=== PATIENT | female | born 1970 | race Caucasian/White ===

== ENCOUNTER 2017-05-02 17:44 | Emergency (ER) | payer OTHER, MEDICAID ==
[2017-05-02 17:51] VITALS: BP 111/71; PULSE 78; RESP 16; TEMP 98.4; O2SAT 97
--- NOTE | 2017-05-02 17:53 | EDPHY ---
H & P Stated Complaint: Nausea, wt loss, subjective fever x several months;here to get checked out Time Seen by Provider: 05/02/17 17:52 - Personal History LMP (Females 10-55): 22-28 Days Ago Current Tetanus Diphtheria and Acellular Pertussis (TDAP): Yes Tetanus Vaccine Date: < 10 years - Medical/Surgical History Hx Asthma: No Hx Chronic Respiratory Disease: No Hx Diabetes: No Hx Cardiac Disease: No Hx Renal Disease: No Hx Cirrhosis: No Hx Alcoholism: No Hx HIV/AIDS: No Hx Splenectomy or Spleen Trauma: No Other PMH: migraines, appendicitis, plastic sx on ear, endometriosis, depression , panic disorder, TBI, SZ - Social History Smoking Status: Current every day smoker Constitutional: Initial Vital Signs Temperature (C) 36.9 C 05/02/17 17:48 Heart Rate 78 05/02/17 17:48 Respiratory Rate 16 05/02/17 17:48 Blood Pressure 111/71 05/02/17 17:48 O2 Sat (%) 97 05/02/17 17:48 O2 Delivery Mode Room Air Allergies/Adverse Reactions: promethazine HCl [From Phenergan] Allergy (Severe, Verified 05/02/17 17:47) COULDNT MOVE erythromycin base [Erythromycin Base] Allergy (Intermediate, Verified 05/02/17 17:47) "VIOLENTLY ILL" morphine [Morphine] Allergy (Intermediate, Verified 05/02/17 17:47) CRAWLED OUT OF SKIN risperidone [From Risperdal] Allergy (Unknown, Verified 05/02/17 17:47) levetiracetam [From Keppra] Allergy (Verified 05/02/17 17:47) oxycodone HCl [From OxyContin] Allergy (Verified 05/02/17 17:47) quetiapine fumarate [From Seroquel] Allergy (Verified 05/02/17 17:47) "I CAN'T MOVE OR SPEAK" Home Medications: Medication Instructions Recorded CLONAZEPAM 04/13/16 Cyclobenzaprine 04/13/16 Fioricet (*) 04/13/16 Zofran 04/13/16 Acyclovir [Zovirax 200 mg (*)] 200 mg PO 05/02/17 Medical Decision Making ED Course/Re-evaluation: CHIEF COMPLAINT: Chronic nausea, difficulty eating HISTORY OF PRESENT ILLNESS: The patient is a 47 y/o female complaining of chronic nausea, weakness, and difficulty eating for the last several months. She has lost several pounds over this time frame and attributes her symptoms to increased stress. She has been evaluated by her PCP and GI for these symptoms, but refused an endoscopy there. She uses Zofran to treat her nausea with some alleviation of symptoms. She is able to eat and drink daily, though reports small quantities. She came to the ED because her friends told her she needs electrolytes via IV. REVIEW OF SYSTEMS: A 10 point review of systems was performed and is negative with the exception of the elements mentioned in the history of present illness. PHYSICAL EXAM: HR, BP, O2 Sat, RR. Temp noted General Appearance: Alert, well hydrated, appropriate, thin, and non-toxic appearing. Head: Atraumatic without scalp tenderness or obvious injury Eyes: Pupils equal, round, reactive to light and accommodation, EOMI, no trauma , no injection. Nose: Atraumatic, no rhinorrhea, clear. Throat: Mucus membranes moist. Neck: Supple Respiratory: No retractions, no distress, no wheezes, and no accessory muscle use. Lungs are clear to auscultation bilaterally. Cardiovascular: Regular rate and rhythm, no murmurs, rubs, or gallops. Good capillary refill all extremities. Gastrointestinal: Abdomen is soft, nontender, non-distended, no masses, no rebound, no guarding, no peritoneal signs. Musculoskeletal: Normal active ROM of all extremities, atraumatic. Neurological: Alert, appropriate, and interactive. Nonfocal neuro exam. Skin: No rashes, good turgor, no nodules on palpation. Past medical history: Chronic nausea, head injuries (no hemorrhage or interventions) Past surgical history: Denies Family history: noncontributory Social history: Lives in [place]. Single. DIFFERENTIAL DIAGNOSIS: The differential diagnosis for the patient's nausea and vomiting included but was not limited to psychiatric disorder, anxiety, depression, gastroenteritis, gastritis, appendicitis, and medication side effect. MEDICAL DECISION MAKING: This is a 47 y/o female who presents with a several-month history of chronic nausea and decreased appetite. She has been extensively worked up for this by her PCP and refused endoscopy by her GI. She has not seen a mental health provider. She has no new symptoms today and is still able to eat and drink daily despite decreased appetite. There is no indication for additional work up or intervention here today. I've recommended following up with her GI and a psychologist this week. She agrees with this plan. Return precautions given. Departure - Departure Disposition: Home, Routine, Self-Care Clinical Impression: Chronic nausea Condition: Good Instructions: Depression (ED) Additional Instructions: 1. Follow up with GI of the [facility], [place] in the next week. You likely need an endoscopy to rule out GI disease processes. 2. Use Zofran as prescribed for nausea. 3. Follow up with a psychologist or psychiatrist for evaluation of depression. This could be a cause for your symptoms. Referrals: Liya Lieberman MD [Primary Care Provider] - As per Instructions Jez Jacques MD [Medical Doctor] - As per Instructions [facility],. [Clinic] - As per Instructions Report Scribed for: Kulwinder Boyd Report Scribed by: Alicia Winters Date of Report: 05/02/17 Time of Report: 18:03
== END 2017-05-02 18:18 | disposition home or self-care (01) ==
DX: R11.0 Nausea (principal); F17.200 Nicotine dependence, unspecified, uncomplicated

== ENCOUNTER 2017-05-19 16:22 | Emergency (ER) | payer OTHER, MEDICAID ==
--- NOTE | 2017-05-19 17:13 | EDPHY ---
H & P Stated Complaint: rectal bleeding /lower abd /pelvic pain/bloating/losing wt Time Seen by Provider: 05/19/17 16:54 HPI/ROS: CHIEF COMPLAINT: Rectal bleeding HISTORY OF PRESENT ILLNESS: This patient is a 47 year old female complaining of 1 episode of rectal bleeding. She has been having regular bowel movements, but noted bright red blood in the toilet after a bowel movement today. Today she describes the blood as "streaming" following a bowel movement, and endorses associated rectal pain. She states that for the last two years she has had difficulty eating, and around one month ago she began feeling very nauseous every time she eats. She was evaluated in this emergency department for this, and has an appointment scheduled to follow up with gastroenterology. She endorses feeling cold often, and has lost "a lot of weight" recently. She denies vomiting, diarrhea, fever, or other associated symptoms. REVIEW OF SYSTEMS: A 10 point review of systems was performed and is negative with the exception of the elements mentioned in the history of present illness. - Personal History LMP (Females 10-55): 1-7 Days Ago Current Tetanus/Diphtheria Vaccine: Unsure Tetanus Vaccine Date: < 10 years - Medical/Surgical History PMH: Three traumatic brain injuries, Migraines, Appendicitis, Endometriosis, Depression Hx Asthma: No Hx Chronic Respiratory Disease: No Hx Diabetes: No Hx Cardiac Disease: No Hx Renal Disease: No Hx Cirrhosis: No Hx Alcoholism: No Hx HIV/AIDS: No Hx Splenectomy or Spleen Trauma: No Other PMH: migraines, appendicitis, plastic sx on ear, endometriosis, depression , panic disorder, TBI, SZ - Social History Smoking Status: Current every day smoker Additional Social History: Single. Lives in [place]. - Physical Exam Exam: General Appearance: Alert, pleasant Eyes: Pupils equal and round, no conjunctival pallor or injection ENT, Mouth: Mucous membranes moist Neck: Normal inspection Respiratory: Lungs are clear to auscultation Cardiovascular: Regular rate and rhythm Gastrointestinal: Abdomen is soft, LLQ tenderness Rectal: Hemorrhoid present, no anal fissure, minimal stool present, no kuldeep blood Neurological: A&O, nonfocal, normal gait Skin: Warm and dry, no rash Extremities: Nontender, no pedal edema Psychiatric: Mood and affect normal Constitutional: Initial Vital Signs Temperature (C) 37 C 05/19/17 16:34 Heart Rate 88 05/19/17 16:34 Respiratory Rate 16 05/19/17 16:34 Blood Pressure 129/78 H 05/19/17 16:34 O2 Sat (%) 96 05/19/17 16:34 O2 Delivery Mode Room Air Allergies/Adverse Reactions: promethazine HCl [From Phenergan] Allergy (Severe, Verified 05/19/17 16:33) COULDNT MOVE erythromycin base [Erythromycin Base] Allergy (Intermediate, Verified 05/19/17 16:33) "VIOLENTLY ILL" morphine [Morphine] Allergy (Intermediate, Verified 05/19/17 16:33) CRAWLED OUT OF SKIN risperidone [From Risperdal] Allergy (Unknown, Verified 05/19/17 16:33) levetiracetam [From Keppra] Allergy (Verified 05/19/17 16:33) oxycodone HCl [From OxyContin] Allergy (Verified 05/19/17 16:33) quetiapine fumarate [From Seroquel] Allergy (Verified 05/19/17 16:33) "I CAN'T MOVE OR SPEAK" Home Medications: Medication Instructions Recorded CLONAZEPAM 04/13/16 Cyclobenzaprine 04/13/16 Fioricet (*) 04/13/16 Zofran 16 Medical Decision Making - Diagnostics Imaging: Discussed imaging studies w/ call center support consultant Radiologist ED Course/Re-evaluation: This patient presents with one episode of BRBPR and LLQ tenderness. Stat CT abd/ pelvis ordered to rule out diverticulitis. IV established. Administered 1L IV NS for patient comfort and symptom relief. 19:[address] Coelho, radiologist. CT abdomen/pelvis shows possible ovarian cyst; no evidence of diverticulitis or other acute processes. 19:26 Reassessed patient. Minor GI bleed, likely internal hemorrhoid. Plan to discharge home in good condition. She will follow up with gastroenterology as scheduled. Return precautions discussed. The patient is comfortable with this plan. Differential Diagnosis: Includes though is not limited to diverticulitis, AVM, severe anemia, upper GI bleed, hemorrhoid, anal fissure. - Data Points Laboratory Results: Laboratory Results 05/19/17 17:14 05/19/17 17:14 Medications Given: Discontinued Medications Sodium Chloride (Ns) 1,000 mls @ 0 mls/hr IV EDNOW ONE; Wide Open PRN Reason: Protocol Stop: 05/19/17 17:34 Last Admin: 05/19/17 17:42 Dose: 1,000 mls Departure - Departure Disposition: Home, Routine, Self-Care Clinical Impression: Rectal bleeding Condition: Good Instructions: Rectal Bleeding (ED) Additional Instructions: 1. Follow up with gastroenterology as scheduled for continued evaluation. 2. Return to the emergency department for increased bleeding, dizziness, fainting, worsening abdominal pain, or other concerns. Referrals: Liya Lieberman MD [Primary Care Provider] - As per Instructions Loida Doan MD [Medical Doctor] - As per Instructions Report Scribed for: Sherlyn Calloway Report Scribed by: Violetta Mustafa Date of Report: 05/19/17 Time of Report: 17:13 Physician Review and Approval Statement: 05/19/17 17:13 Portions of this note were transcribed by a biomedical specialist. I personally performed a history, physical exam, medical decision making, and confirmed accuracy of information the transcribed note.
[2017-05-19] MEDS ORDERED: NS 1,000 ML IV ONE (17:33)
[2017-05-19 17:41] LABS: % IMMATURE GRANULYOCYTES 0.4 % (0.0-1.1); ABSOLUTE IMMATURE GRANULOCYTES 0.02 10^3/uL (0.00-0.10); ADD DIFF? NO; ADD MORPH? NO; ADD SCAN? NO; ATYPICAL LYMPHOCYTE FLAG 10 (0-99); FRAGMENT RBC FLAG 0 (0-99); HEMATOCRIT 39.1 % (38.0-47.0); HEMOGLOBIN 13.6 g/dL (12.6-16.3); LEFT SHIFT FLG 0 (0-99); LIPEMIA HEMOLYSIS FLAG 90 (0-99); MEAN CELL HEMOGLOBIN 34.9 pg (27.9-34.1); MEAN CELL HEMOGLOBIN CONCENTR. 34.8 g/dL (32.4-36.7); MEAN CELL VOLUME 100.3 fL (81.5-99.8); MEAN PLATELET VOLUME 10.5 fL (8.7-11.7); PLATELET CLUMPS FLAG 10 (0-99); PLATELET COUNT 203 10^3/uL (150-400); RED CELL DISTRIBUTION WIDTH 12.1 % (11.5-15.2)
[2017-05-19 17:47] LABS: ANION GAP 9 mEq/L (8-16); CALCIUM 9.1 mg/dL (8.5-10.4); CARBON DIOXIDE 24 mEq/l (22-31); CHLORIDE 103 mEq/L (97-110); CREATININE 0.7 mg/dL (0.6-1.0); GLOMERULAR FILTRATION RATE > 60; GLUCOSE 97 mg/dL (70-100); POTASSIUM 3.5 mEq/L (3.5-5.2); SODIUM 136 mEq/L (134-144)
[2017-05-19] MEDS ORDERED: IOPAMIDOL (ISOVUE-300) 100 ML BTL ONE (18:24)
[2017-05-19 19:02] VITALS: BP 100/67; PULSE 66; RESP 18; TEMP 98.2; O2SAT 98
== END 2017-05-19 19:45 | disposition home or self-care (01) ==
DX: K62.5 Hemorrhage of anus and rectum (principal); F17.200 Nicotine dependence, unspecified, uncomplicated; E86.9 Volume depletion, unspecified
CPT/HCPCS: 74177; 96360; 99285; Q9967

== ENCOUNTER → 2017-09-01 | Outpatient (CLI) | payer OTHER, MEDICAID | LOC: CIMAGING 17:47 | PROVIDERS: ATTEND Family Medicine | DX: E04.1 Nontoxic single thyroid nodule (principal); L65.9 Nonscarring hair loss, unspecified; R53.83 Other fatigue; R63.4 Abnormal weight loss; R68.89 Other general symptoms and signs; Z86.39 Personal history of other endocrine, nutritional and metabolic disease | CPT/HCPCS: 76536-PO; 82607-90; 84481-90; 87338-90 ==

== ENCOUNTER → 2017-09-09 | Outpatient (CLI) | payer OTHER, MEDICAID | LOC: FLAB 08:39 | PROVIDERS: ATTEND Family Medicine | DX: E05.90 Thyrotoxicosis, unspecified without thyrotoxic crisis or storm (principal) | CPT/HCPCS: 78014; A9516 ==

== ENCOUNTER 2017-09-27 14:20 | Emergency (ER) | payer OTHER, MEDICAID ==
[2017-09-27 14:25] VITALS: TEMP 97.9
--- NOTE | 2017-09-27 15:23 | EDPHY ---
H & P Stated Complaint: Cough and Flu Sx HPI/ROS: CHIEF COMPLAINT: Cough, weak, lethargic, chest pain HISTORY OF PRESENT ILLNESS: The patient is a 47 y/o female with a history of pneumonia and asthma complaining of cough, sore throat, body aches, and lethargy for the past 5 days. Last night she began to have sweats and has been coughing up yellow sputum. The symptoms today are similar with her prior pneumonia and she is concerned that she might have pneumonia again. Has been able to eat and drink. Took ibuprofen and Fioricet at 10:00, 6 hours ago. Denies diarrhea, vomiting, abdominal pain, urinary complaints, numbness or other pertinent symptoms. REVIEW OF SYSTEMS: A ten point review of systems was performed and is negative with the exception of the items mentioned in the HPI. Past medical history: 1. Asthma 2. Migraines 3. Endometriosis 4. Depression 5. Panic disorder 6. TBI 7. Seizure Past surgical history: 1. Appendicitis 2. Plastic surgery on ear Family history: Denies Social history: Lives in [place], single, smoker General Appearance: Alert. Vital signs reviewed. Eyes: Pupils equal and round, no conjunctival injection, no discharge. Anicteric. ENT, Mouth: Mucous membranes are moist, no oropharyngeal erythema or edema. Ears: Cerumen visible in left ear. Nl TM right. Neck: Lymphadenopathy present, supple. Respiratory: Wheezes with deep expirations. No rales, or rhonchi. Cardiovascular: Regular rate and rhythm; no murmur, rub, or gallop. Gastrointestinal: Abdomen is soft and nontender, no masses or organomegaly, bowel sounds normal. Skin: Warm and dry, no rashes on exposed skin, normal color. Back: Nontender to palpation over the thoracolumbar spine. No CVAT. Extremities: No lower extremity edema, no calf tenderness or swelling. Neurological: Alert and oriented. Moving all four extremities easily and equally. Psychiatric: Normal affect. - Personal History LMP (Females 10-55): 8-14 Days Ago Current Tetanus Diphtheria and Acellular Pertussis (TDAP): Yes Tetanus Vaccine Date: < 10 years - Medical/Surgical History Hx Asthma: No Hx Chronic Respiratory Disease: No Hx Diabetes: No Hx Cardiac Disease: No Hx Renal Disease: No Hx Cirrhosis: No Hx Alcoholism: No Hx HIV/AIDS: No Hx Splenectomy or Spleen Trauma: No Other PMH: migraines, appendicitis, plastic sx on ear, endometriosis, depression , panic disorder, TBI, SZ - Social History Smoking Status: Current every day smoker Constitutional: Initial Vital Signs Temperature (C) 36.6 C 09/27/17 14:22 Heart Rate 85 09/27/17 14:22 Respiratory Rate 18 09/27/17 14:22 Blood Pressure 113/74 09/27/17 14:22 O2 Sat (%) 96 09/27/17 14:22 O2 Delivery Mode Room Air Allergies/Adverse Reactions: promethazine HCl [From Phenergan] Allergy (Severe, Verified 05/19/17 16:33) COULDNT MOVE erythromycin base [Erythromycin Base] Allergy (Intermediate, Verified 05/19/17 16:33) "VIOLENTLY ILL" morphine [Morphine] Allergy (Intermediate, Verified 05/19/17 16:33) CRAWLED OUT OF SKIN risperidone [From Risperdal] Allergy (Unknown, Verified 05/19/17 16:33) levetiracetam [From Keppra] Allergy (Verified 05/19/17 16:33) oxycodone HCl [From OxyContin] Allergy (Verified 05/19/17 16:33) quetiapine fumarate [From Seroquel] Allergy (Verified 05/19/17 16:33) "I CAN'T MOVE OR SPEAK" Home Medications: Medication Instructions Recorded CLONAZEPAM 04/13/16 Cyclobenzaprine 04/13/16 Fioricet (*) 04/13/16 Zofran 04/13/16 Benzonatate [Tessalon Pearles (RX)] 100 mg PO TID #15 cap 09/27/17 Medical Decision Making - Diagnostics Imaging: I viewed and interpreted images myself ED Course/Re-evaluation: The patient is a 47 y/o female with a history of pneumonia and asthma presenting with body aches, fatigue, and lethargy for 5 days. On exam, there are wheezes with deep expirations and lymphadenopathy present. Patient would like a flu test. Chest x-ray ordered. 1L IV NS and DuoNeb ordered. She is declining Tylenol and/or ibuprofen. 1600: I reviewed patient's chest x-ray; there are no acute abnormalities. 1640: Reassessed patient and discussed imaging findings. She is feeling better after DuoNeb treatment. 1700: Patient has influenza A. 1800: Reassessed patient and discussed positive influenza findings. I have prescribed her Tessalon pearls for her cough and wheezing. I have advised her to take Tylenol or ibuprofen as well as increase her fluids. She is encouraged to use her inhaler. She does not meet Tamiflu criteria. Return precautions provided; patient is comfortable with this plan. Differential Diagnosis: I considered a ddx that includes but is not limited to influenza, pneumonia, bronchitis, URI, otitis media or externa, pharyngitis, other viral syndromes. - Data Points Medications Given: Discontinued Medications Albuterol/Ipratropium (Duoneb) 3 ml IH EDNOW ONE Stop: 09/27/17 16:15 Last Admin: 09/27/17 16:19 Dose: 3 ml Benzonatate (Tessalon Pearles) 200 mg PO EDNOW ONE Stop: 09/27/17 17:48 Last Admin: 09/27/17 18:10 Dose: 200 mg Sodium Chloride (Ns) 1,000 mls @ 0 mls/hr IV ONCE ONE; Wide Open PRN Reason: Protocol Stop: 09/27/17 16:15 Last Admin: 09/27/17 16:19 Dose: 1,000 mls Departure - Departure Disposition: Home, Routine, Self-Care Clinical Impression: Influenza A Condition: Good Instructions: Benzonatate (By mouth), Influenza (ED) Additional Instructions: 1. Adult Pain & Fever Control: We recommend Acetaminophen (Tylenol) and Ibuprofen (Motrin,Advil) for pain and fever control. When fever is high or pain severe, both drugs can be used at the same time, but at different intervals. Please note the time differences. Your dose is: Acetaminophen 650mg every 4 to 6 hours Ibuprofen 400mg every 6-8 hours with food. Note: do not take Acetaminophen with Hydrocodone (Vicodin, Lortab) or Oycodone (Percocet). These medications also contain Acetaminophen. No more than 3000mg of Acetaminophen should be taken in 24 hours (for an adult). 2. Take Tessalon pearls as prescribed. 3. Increase fluid intake as much as tolerated. 4. Follow up with primary care physician in 3-4 days if not improving. 5. Return to the Emergency Department for uncontrollable fever, shortness of breath, or other worsening of condition. Referrals: Kwame Moreno DO [Primary Care Provider] - As per Instructions Prescriptions: Benzonatate [Tessalon Pearles (RX)] 100 mg PO TID #15 cap Report Scribed for: Cordelia Collazo Report Scribed by: Liss Givens Date of Report: 09/27/17 Time of Report: 15:37 Physician Review and Approval Statement: 09/27/17 15:23 Portions of this note were transcribed by the medical research scientist. I, Dr. Cordelia Collazo, personally performed the history, physical exam, and medical decision- making; and confirmed the accuracy of the information in the transcribed note.
[2017-09-27] MEDS ORDERED: IPRATROPIUM/ALBUTEROL 3 ML DEYVIAL IH ONE (16:14)
[2017-09-27] MEDS ORDERED: NS 1,000 ML IV ONE (16:14)
[2017-09-27 16:43] VITALS: BP 103/65; PULSE 72; RESP 16; O2SAT 99
[2017-09-27] MEDS ORDERED: BENZONATATE 100 MG CAP PO ONE (17:47)
== END 2017-09-27 18:12 | disposition home or self-care (01) ==
PROC: 3E0337Z Introduction of Electrolytic and Water Balance Substance into Peripheral Vein, Percutaneous Approach (ICD-10-PCS; principal; 2017-09-27)
DX: J10.1 Influenza due to other identified influenza virus with other respiratory manifestations (principal); J45.909 Unspecified asthma, uncomplicated; F17.200 Nicotine dependence, unspecified, uncomplicated; E86.9 Volume depletion, unspecified

== ENCOUNTER 2017-09-29 14:43 | Emergency (ER) | payer OTHER, MEDICAID ==
[2017-09-29 14:47] VITALS: RESP 18; TEMP 98.2
[2017-09-29] MEDS ORDERED: guaiFENesin 600 MG TAB.ER PO ONE (15:06)
[2017-09-29] MEDS ORDERED: IPRATROPIUM/ALBUTEROL 3 ML DEYVIAL IH ONE (15:08)
--- NOTE | 2017-09-29 15:11 | EDPHY ---
H & P Stated Complaint: coughing up blood/positive flu Time Seen by Provider: 09/29/17 14:56 HPI/ROS: CHIEF COMPLAINT: Coughing up blood HISTORY OF PRESENT ILLNESS: The patient is a 47-year-old female who was seen 2 days ago diagnosed with the flu A and had a negative chest x-ray. It was too late for her to start Tamiflu. She states that today she had some blood-tinged sputum in her cough and called her primary is office with the nurse line recommended she come to the ER. She has not had a fever lately. She states that her cough is decreased. She was prescribed Tessalon Perles but was not able to fill the prescription because of cost. REVIEW OF SYSTEMS: Constitutional: denies: chills, fever, recent illness, recent injury EENTM: denies: blurred vision, double vision, nose congestion Respiratory: See HPI Cardiac: denies: chest pain, irregular heart rate, lightheadedness, palpitations Gastrointestinal/Abdominal: denies: abdominal pain, diarrhea, nausea, vomiting, blood streaked stools Genitourinary: denies: dysuria, frequency, hematuria, pain Musculoskeletal: denies: joint pain, muscle pain Skin: denies: lesions, rash, jaundice, bruising Neurological: denies: headache, numbness, paresthesia, tingling, dizziness, weakness Hematologic/Lymphatic: denies: blood clots, easy bleeding, easy bruising Immunologic/allergic: denies: HIV/AIDS, transplant EXAM: GENERAL: Well-appearing, well-nourished and in no acute distress. HEAD: Atraumatic, normocephalic. EYES: Pupils equal round and reactive to light, extraocular movements intact, sclera anicteric, conjunctiva are normal. ENT: TMs normal, nares patent, oropharynx clear without exudates. Moist mucous membranes. NECK: Normal range of motion, supple without lymphadenopathy or JVD. LUNGS: Breath sounds clear to auscultation bilaterally and equal. No wheezes rales or rhonchi. HEART: Regular rate and rhythm without murmurs, rubs or gallops. ABDOMEN: Soft, nontender, normoactive bowel sounds. No guarding, no rebound. No masses appreciated. BACK: No CVA tenderness, no spinal tenderness, step-offs or deformities EXTREMITIES: Normal range of motion, no pitting or edema. No clubbing or cyanosis. NEUROLOGICAL: Cranial nerves II through XII grossly intact. Normal speech, normal gait. 5/5 strength, normal movement in all extremities, normal sensation PSYCH: Normal mood, normal affect. SKIN: Warm, dry, normal turgor, no visible rashes or lesions. Source: Patient Exam Limitations: No limitations - Personal History Tetanus Vaccine Date: < 10 years - Medical/Surgical History Hx Asthma: No Hx Chronic Respiratory Disease: No Hx Diabetes: No Hx Cardiac Disease: No Hx Renal Disease: No Hx Cirrhosis: No Hx Alcoholism: No Hx HIV/AIDS: No Hx Splenectomy or Spleen Trauma: No Other PMH: migraines, appendicitis, plastic sx on ear, endometriosis, depression , panic disorder, TBI, SZ - Family History Significant Family History: No pertinent family hx - Social History Smoking Status: Current every day smoker Alcohol Use: Sober Constitutional: Initial Vital Signs Temperature (C) 36.8 C 09/29/17 14:45 Heart Rate 84 09/29/17 14:45 Respiratory Rate 18 09/29/17 14:45 Blood Pressure 122/73 H 09/29/17 14:45 O2 Sat (%) 97 09/29/17 14:45 O2 Delivery Mode Room Air Allergies/Adverse Reactions: promethazine HCl [From Phenergan] Allergy (Severe, Verified 05/19/17 16:33) COULDNT MOVE erythromycin base [Erythromycin Base] Allergy (Intermediate, Verified 05/19/17 16:33) "VIOLENTLY ILL" morphine [Morphine] Allergy (Intermediate, Verified 05/19/17 16:33) CRAWLED OUT OF SKIN risperidone [From Risperdal] Allergy (Unknown, Verified 05/19/17 16:33) levetiracetam [From Keppra] Allergy (Verified 05/19/17 16:33) oxycodone HCl [From OxyContin] Allergy (Verified 05/19/17 16:33) quetiapine fumarate [From Seroquel] Allergy (Verified 05/19/17 16:33) "I CAN'T MOVE OR SPEAK" Home Medications: Medication Instructions Recorded CLONAZEPAM 04/13/16 Cyclobenzaprine 04/13/16 Fioricet (*) 04/13/16 Zofran 04/13/16 Benzonatate [Tessalon Pearles (RX)] 100 mg PO TID #15 cap 09/27/17 Ondansetron Odt [Zofran Odt 4 mg 4 mg PO Q4 PRN #20 tab 09/29/17 (RX)] guaiFENesin [Mucinex 600 MG (*)] 600 mg PO BID #14 tab.er 09/29/17 Medical Decision Making - Diagnostics Imaging Results: Imaging Impressions Chest X-Ray 09/29/17 15:07 Impression: Findings consistent with mild airways disease noted. ED Course/Re-evaluation: Patient has a normal lung exam is saturating 97% on room air. We discussed options. She is requesting a chest x-ray and a DuoNeb. We will observe. 3:30 p.m. the patient feels shaky after the albuterol treatment and does not feel better. We discussed her x-ray results which are reassuring. She is requesting Zofran as well as Mucinex as a prescription. She declines further workup or testing at this time and is ready to go home. We discussed follow-up and indications for returning. Differential Diagnosis: Partial list of the Differential diagnosis considered include but were not limited to; influenza, bronchitis, pneumonia, anxiety and although unlikely based on the history and physical exam, I also considered PE, DVT, tuberculosis. I discussed these differential diagnoses and the plan with the patient as well as the usual and expected course. The patient understands that the diagnosis is provisional and that in medicine we are not always correct and that further workup is often warranted. Usual and customary warnings were given. All of the patient's questions were answered. The patient was instructed to return to the emergency department should the symptoms at all worsen or return, otherwise to followup with the physician as we discussed. - Data Points Medications Given: Discontinued Medications Albuterol/Ipratropium (Duoneb) 3 ml IH EDNOW ONE Stop: 09/29/17 15:09 Last Admin: 09/29/17 15:20 Dose: 3 ml Guaifenesin (Mucinex) 600 mg PO EDNOW ONE Stop: 09/29/17 15:07 Last Admin: 09/29/17 15:35 Dose: 600 mg Ondansetron HCl (Zofran Odt) 4 mg PO EDNOW ONE Stop: 09/29/17 15:24 Last Admin: 09/29/17 15:35 Dose: 4 mg Departure - Departure Disposition: Home, Routine, Self-Care Clinical Impression: Influenza A Condition: Fair Instructions: Guaifenesin (By mouth), Ondansetron (By mouth), Influenza (ED) Referrals: Kwame Moreno DO [Primary Care Provider] - As per Instructions Prescriptions: guaiFENesin [Mucinex 600 MG (*)] 600 mg PO BID #14 tab.er Ondansetron Odt [Zofran Odt 4 mg (RX)] 4 mg PO Q4 PRN #20 tab PRN Reason: Nausea & Vomiting
[2017-09-29] MEDS ORDERED: ONDANSETRON DISINTEGRATING 4 MG TAB PO ONE (15:23)
[2017-09-29 15:55] VITALS: BP 99/62; PULSE 71; O2SAT 98
== END 2017-09-29 15:55 | disposition home or self-care (01) ==
DX: J10.1 Influenza due to other identified influenza virus with other respiratory manifestations (principal); F17.200 Nicotine dependence, unspecified, uncomplicated

== ENCOUNTER → 2017-11-27 | Outpatient (CLI) | payer OTHER, MEDICAID | LOC: FIMAGING 12:21 | PROVIDERS: ATTEND Internal Medicine Gastroenterology | DX: R10.84 Generalized abdominal pain (principal) ==

== ENCOUNTER 2017-12-01 10:41 | Day surgery (SDC) | payer OTHER, MEDICAID ==
[2017-12-01] MEDS ORDERED: LR 1,000 ML IV ONE (11:02)
[2017-12-01] MEDS ORDERED: LIDOCAINE 1% 2 ML INJ ID PRN (11:02)
[2017-12-01 11:42] VITALS: PULSE 75
--- NOTE | 2017-12-01 12:23 | PDGENHP ---
History & Physical Chief Complaint: Hematochezia History of Present Illness: 47 yo female with abdominal pain, bloating and hematochezia Pertinent Past, Social, Family History: RAD. Anxiety. No Tobacco or ETOH. No FH colon cancer Relevant Physical Exam: NAD. CTA B/L. Dry cough. Good air exchange. RRR without m/r/g. GI soft. NABS. No TTP. No R/G Cardiorespiratory Assessment: ASA II. Colonoscopy with MAC
[2017-12-01] MEDS ORDERED: PROPOFOL/EMULSION 500 MG/50 ML BOTTLE IV ONE (12:26)
[2017-12-01] MEDS ORDERED: NALOXONE HCL 0.4 MG/ML INJ IVP PRN (12:41)
[2017-12-01] MEDS ORDERED: LR 500 ML IV PRN (12:41)
[2017-12-01] MEDS ORDERED: ONDANSETRON 4 MG/2 ML VIAL IVP PRN (12:41)
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
--- NOTE | 2017-12-01 12:50 | GIREPORT ---
[facility] Surgical Services - Endoscopy Department Patient Name: Carolynn Osborne Procedure Date: 12/01/2017 12:20 PM Patient Type: Outpatient Attending MD/ ER Physician: Edu Garber MD Procedure: Colonoscopy Indications: Abdominal pain in the left lower quadrant, Hematochezia, Change in federica l habits Providers: Edu Garber MD Medicines: Propofol per Anesthesia Complications: No immediate complications. Description of Procedure: After obtaining informed consent, the scope was passed under direct vis ion. Throughout the procedure, the patient's blood pressure, pulse, and oxyg en saturations were monitored continuously. The Loaner scope was introduce d through the anus and advanced to the cecum, identified by appendiceal orifice and ileocecal valve. The colonoscopy was performed without difficulty. The patient tolerated the procedure well. The quality of th e bowel preparation was unsatisfactory. Findings: The perianal and digital rectal examinations were normal. Pertinent negatives include normal sphincter tone and no palpable rectal lesions. Barium from her recent UGI series was found in the entire right colon a nd could not be cleansed. The portions of the colon that were seen exhibit ed normal mucosa from the rectum to cecum. Estimated Blood Loss: Estimated blood loss: none. Post Op Diagnosis: - Preparation of the colon was unsatisfactory. - Normal mucosa from rectum to cecum for the portions that could be adequately seen. - No specimens collected. - The exam is incomplete and needs to be repeated. - I suspect her symptoms are related to irritable bowel syndrome. Recommendation: - Repeat colonoscopy at appointment to be scheduled because the bowel preparation was poor. - Resume previous diet. - Continue present medications. - Patient has a contact number available for emergencies. The signs and symptoms of potential delayed complications were discussed with the pat ient. Return to normal activities tomorrow. Written discharge instructions we re provided to the patient. - Thank you for allowing me to be involved in the care of your patient. Attending Participation: I personally performed the entire procedure without the assistance of a fellow, resident or surg ical research assistant member. Edu Garber MD Edu Garber MD 12/01/2017 12:49:43 PM This report has been signed electronicallyDavid MD Shirlene Number of Addenda: 0 Note Initiated On: 12/01/2017 12:20 PM Total Procedure Duration Time 0 hours 9 minutes 57 seconds [email or web address]
--- NOTE | 2017-12-01 14:22 | POSTANESTH ---
Post Anesthetic Evaluation Cardiovascular Status: Similar to Pre-Op Cond Respiratory Status: Similar to Pre-op Cond. Level of Consciousness/Mental Status: Alert and Oriented Pain Control: Adequate, Prn Tx Ordered Nausea/Vomiting Control: Adequate, Prn Tx Ordered Complications Possibly Related to Anesthesia: None Noted
[2017-12-01 14:34] VITALS: BP 92/60; RESP 11; O2SAT 98
[2017-12-01 15:31] VITALS: TEMP 98.3
== END 2017-12-01 14:35 | disposition home or self-care (01) ==
LOC: FSGY 10:41
PROVIDERS: ATTEND Internal Medicine Gastroenterology
PROC: 0DJD8ZZ Inspection of Lower Intestinal Tract, Via Natural or Artificial Opening Endoscopic (ICD-10-PCS; principal; 2017-12-01 12:00)
DX: K92.1 Melena (principal); R10.9 Unspecified abdominal pain; F41.1 Generalized anxiety disorder; F33.1 Major depressive disorder, recurrent, moderate; F17.200 Nicotine dependence, unspecified, uncomplicated
CPT/HCPCS: J2704

== ENCOUNTER → 2017-12-30 | Outpatient (CLI) | payer OTHER, MEDICAID | LOC: BMCIMAGING 15:01 | PROVIDERS: ATTEND Hospitalist | DX: N92.0 Excessive and frequent menstruation with regular cycle (principal); D25.1 Intramural leiomyoma of uterus; D25.2 Subserosal leiomyoma of uterus ==

== ENCOUNTER → 2018-06-18 | Outpatient (CLI) | payer OTHER, MEDICAID ==
[~2018-06-18] MED LIST: GADOBUTROL 10 ML VIAL IVP ONE
== END ==
LOC: FIMAGING 12:53
PROVIDERS: ATTEND Physician Assistant Medical
DX: R90.82 White matter disease, unspecified (principal)
CPT/HCPCS: 70553; A9585

== ENCOUNTER 2018-11-01 14:18 | Emergency (ER) | payer OTHER, MEDICAID ==
--- NOTE | 2018-11-01 15:03 | EDPHY ---
H & P Stated Complaint: migraine for 3- 4 days, neurologist sent here Time Seen by Provider: 11/01/18 15:03 - Personal History LMP (Females 10-55): 1-7 Days Ago Current Tetanus/Diphtheria Vaccine: Unsure Current Tetanus Diphtheria and Acellular Pertussis (TDAP): Unsure Tetanus Vaccine Date: < 10 years - Medical/Surgical History Hx Asthma: No Hx Chronic Respiratory Disease: No Hx Diabetes: No Hx Cardiac Disease: No Hx Renal Disease: No Hx Cirrhosis: No Hx Alcoholism: No Hx HIV/AIDS: No Hx Splenectomy or Spleen Trauma: No Other PMH: migraines, appendicitis, plastic sx on ear, endometriosis, depression , panic disorder, TBI, SZ - Social History Smoking Status: Current every day smoker Constitutional: Initial Vital Signs Temperature (C) 36.8 C 11/01/18 14:34 Heart Rate 97 11/01/18 14:34 Respiratory Rate 16 11/01/18 14:34 Blood Pressure 105/69 11/01/18 14:34 O2 Sat (%) 97 11/01/18 14:34 O2 Delivery Mode Room Air O2 (L/minute) 1 Allergies/Adverse Reactions: promethazine HCl [From Phenergan] Allergy (Severe, Verified 04/26/18 18:10) COULDNT MOVE OR TALK erythromycin base [Erythromycin Base] Allergy (Intermediate, Verified 04/26/18 18:10) "VIOLENTLY ILL" SWEATING,NAUSEA & VOMITING morphine [Morphine] Allergy (Intermediate, Verified 04/26/18 18:10) CRAWLED OUT OF SKIN,ITCHY,ANXIOUS, DIFF BREATHING risperidone [From Risperdal] Allergy (Unknown, Verified 04/26/18 18:10) UNABLE TO MOVE JAW OR TALK acetaminophen [From Vicodin] Allergy (Verified 04/26/18 18:10) NAUSEA AND VOMITING hydrocodone [From Vicodin] Allergy (Verified 04/26/18 18:10) NAUSEA AND VOMITING lamotrigine [From Lamictal] Allergy (Verified 04/26/18 18:10) Rash levetiracetam [From Keppra] Allergy (Verified 04/26/18 18:10) SEVERE IRRITATION, RASH oxycodone [From Percocet] Allergy (Verified 04/26/18 18:10) NAUSEA & VOMITING oxycodone HCl [From OxyContin] Allergy (Verified 04/26/18 18:10) PROJECTILE VOMITING quetiapine fumarate [From Seroquel] Allergy (Verified 04/26/18 18:10) "I CAN'T MOVE OR SPEAK" Home Medications: Medication Instructions Recorded CLONAZEPAM 04/13/16 Cyclobenzaprine 04/13/16 Fioricet (*) 04/13/16 Zofran 04/13/16 Wellbutrin Sr 11/25/17 Albuterol PRN 12/01/17 Medical Decision Making - Diagnostics Imaging Results: Imaging Impressions Head CT 11/01/18 15:13 Impression: No acute intracranial hemorrhage or calvarial fracture. 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 Due to the TBI and ongoing neurological symptoms she has had numerous imagining studies and is followed by a neurologist a [facility]. She had a brain MRI on 06/18/18 without any significant findings. Several days ago the migraine began and was associated with feeling nauseous. She ran out of Zofran and the Fioricet did not alleviate her symptoms. She called her neurologist, Dr. Rothman, who advised that the patient present to the emergency department for a CT and medications. No fever, chest pain, shortness of breath, abdominal pain, urinary or bowel complaints, numbness, paresthesias. REVIEW OF SYSTEMS: A comprehensive 10 system review of systems is otherwise negative aside from elements mentioned in the history of present illness and medical decision making. PHYSICAL EXAM: HR, BP, O2 Sat, RR. Temp noted General Appearance: Lying in a dark room, alert, well hydrated, appropriate, and non-toxic appearing. Head: Atraumatic without scalp tenderness or obvious injury Eyes: Pupils equal, round, reactive to light and accommodation, EOMI, no trauma , no injection. Ears: Clear bilaterally, no perforation, normal landmarks Nose: Atraumatic, no rhinorrhea, clear. Throat: There is no erythema or exudates, no lesions, normal tonsils, mucus membranes moist. Neck: Supple, 2+ carotid upstroke, nontender, no lymphadenopathy. Respiratory: No retractions, no distress, no wheezes, and no accessory muscle use. Lungs are clear to auscultation bilaterally. Cardiovascular: Regular rate and rhythm, no murmurs, rubs, or gallops. Bilateral carotid, radial, dorsalis pedis, and posterior tibial pulses intact. Good capillary refill all extremities. Gastrointestinal: Abdomen is soft, nontender, non-distended, no masses, no rebound, no guarding, no peritoneal signs. Musculoskeletal: Normal active ROM of all extremities, atraumatic. Neurological: Alert, appropriate, and interactive. The patient has normal DTRs and non-focal cranial nerves, motor, sensory, and cerebellar exam. Skin: No rashes, good turgor, no nodules on palpation. Past medical history: Migraines, endometriosis, depression, panic disorder, TBI with white matter changes, seizures Past surgical history: Appendectomy Family history: Denies Social history: Lives in [place], single, not employed DIAGNOSTICS/PROCEDURES/CRITICAL CARE TIME: Head CT: Negative for acute findings. DIFFERENTIAL DIAGNOSIS: The differential diagnosis for the patient's headache included but was not limited to subarachnoid hemorrhage, migraine headache, tension headache and infectious causes such as meningitis, pharyngitis and sinusitis. MEDICAL DECISION MAKING: The patient is a 48 y/o female with a history of migraines, a traumatic brain injury causing white matter changes and seizures complaining of a migraine onset 3-4 days ago. She had a brain MRI on 06/18/18 without any significant findings. As her symptoms have not improved after Fioricet, she was advised to present to the emergency department for a head CT and medications. I have thoroughly discussed with the patient that a head CT is not indicated as she had a brain MRI in May. However, she would still like to have the head CT. Head CT and labs ordered; 1L IV NS, 30mg IV Toradol, and 4mg IV Zofran. 1545: I spoke with Dr. Rodriguez, radiologist, who reports that the head CT is negative for acute findings. 1557: Reassessed patient and discussed laboratory and imaging studies. She is feeling mildly better after medications and supplemental oxygen. She is requesting pain medications at this time; 0.5 mg IV Dilaudid administered. 1619: Reassessed patient as she refused the Dilaudid. I have advised her to follow up with her neurologist and take Zofran as prescribed. Return precautions provided; patient is comfortable with this plan. 1635: Reassessed patient as she is concerned that I and the nurse are angry at her. I have reassured her that we are not angry at her and she is safe to go home. - Data Points Medications Given: Discontinued Medications Hydromorphone HCl (Dilaudid) 1 mg IVP EDNOW ONE Stop: 11/01/18 16:03 Last Admin: 11/01/18 16:14 Dose: Not Given Sodium Chloride (Ns) 1,000 mls @ 0 mls/hr IV EDNOW ONE; Wide Open PRN Reason: Protocol Stop: 11/01/18 15:17 Last Admin: 11/01/18 15:47 Dose: 1,000 mls Ketorolac Tromethamine (Toradol) 30 mg IVP EDNOW ONE Stop: 11/01/18 15:14 Last Admin: 11/01/18 15:45 Dose: 30 mg Ondansetron HCl (Zofran) 4 mg IVP EDNOW ONE Stop: 11/01/18 15:14 Last Admin: 11/01/18 15:46 Dose: 4 mg Ondansetron HCl (Zofran Odt 4 Mg Prepack#2) 1 btl TAKEHOME EDNOW ONE Stop: 11/01/18 16:13 Last Admin: 11/01/18 16:22 Dose: 1 btl Departure - Departure Disposition: Home, Routine, Self-Care Clinical Impression: Migraine Qualifiers: Migraine type: other Status migrainosus presence: without status migrainosus Intractability: intractable Qualified Code(s): G43.819 - Other migraine, intractable, without status migrainosus Condition: Good Instructions: Ondansetron (By mouth), Migraine Headache (ED), Acute Headache ( ED) Additional Instructions: 1. Follow-up with your primary care physician within 72 hours. 2. Return to the emergency department immediately for recurrence of headache, nausea, vomiting, numbness, weakness, neck pain, fever or other concerns. 3. Use Tylenol and/or ibuprofen as directed. 4. Take Zofran as prescribed. Referrals: Kwame Moreno DO [Primary Care Provider] - As per Instructions Orion Rothman MD [Medical Doctor] - As per Instructions Report Scribed for: Kulwinder Boyd Report Scribed by: Liss Givens Date of Report: 11/01/18 Time of Report: 15:44
[2018-11-01] MEDS ORDERED: KETOROLAC 30 MG/1 ML SDV IVP ONE (15:13)
[2018-11-01] MEDS ORDERED: ONDANSETRON 4 MG/2 ML VIAL IVP ONE (15:13)
[2018-11-01] MEDS ORDERED: NS 1,000 ML IV ONE (15:16)
[2018-11-01] MEDS: HYDROmorphONE/DILAUDID 2 MG/ML INJ IVP ONE ×2 (16:08→16:14)
[2018-11-01 16:10] VITALS: BP 96/59
[2018-11-01] MEDS ORDERED: ONDANSETRON 4MG PREPACK#2 BTL TAKEHOME ONE (16:12)
== END 2018-11-01 16:32 | disposition home or self-care (01) ==
DX: G43.819 Other migraine, intractable, without status migrainosus (principal); F32.9 Major depressive disorder, single episode, unspecified
CPT/HCPCS: 70450; 96374; 96375; 99285; J1170; J1885; J2405

== ENCOUNTER → 2018-11-24 | Outpatient (CLI) | payer OTHER, MEDICAID | LOC: CIMAGING 14:31 | PROVIDERS: ATTEND Family Medicine | DX: J98.4 Other disorders of lung (principal) | CPT/HCPCS: 71046-PO ==

== ENCOUNTER → 2019-01-26 | Outpatient (CLI) | payer OTHER, MEDICAID | LOC: FIMAGING 15:41 | DX: G35 Multiple sclerosis (principal) ==